=== PATIENT | female | born 1955 | race Caucasian/White ===

== ENCOUNTER 2016-04-29 16:13 | Outpatient (CLI) | payer OTHER | END 2016-04-29 16:14 | LOC: LABRHC 16:13 | PROVIDERS: ATTEND Family Medicine | DX: Z12.4 Encounter for screening for malignant neoplasm of cervix (principal); Z01.419 Encounter for gynecological examination (general) (routine) without abnormal findings | CPT/HCPCS: 88148; G0143 ==

== ENCOUNTER 2017-05-22 10:47 | Outpatient (CLI) | payer OTHER ==
[2017-05-22 12:23] LABS: eGFR (African) > 60; eGFR (Non-African) > 60
== END 2017-05-22 10:50 ==
LOC: LAB 10:47
PROVIDERS: ATTEND Family Medicine
DX: Z00.00 Encounter for general adult medical examination without abnormal findings (principal)
CPT/HCPCS: 36415; 80053; 80061

== ENCOUNTER 2018-05-04 09:17 | Outpatient (CLI) | payer OTHER ==
[2018-05-04 09:47] LABS: eGFR (Non-African) > 60
== END 2018-05-04 09:19 ==
LOC: LAB 09:17
PROVIDERS: ATTEND Family Medicine
DX: Z00.00 Encounter for general adult medical examination without abnormal findings (principal)
CPT/HCPCS: 36415; 80053; 80061

== ENCOUNTER 2018-06-09 14:30 | Outpatient (CLI) | payer OTHER | END 2018-06-09 14:33 | LOC: LABRHC 14:30 | PROVIDERS: ATTEND Family Medicine | DX: Z12.4 Encounter for screening for malignant neoplasm of cervix (principal) | CPT/HCPCS: 88148; G0143 ==

== ENCOUNTER 2019-01-19 07:59 | Emergency (ER) | payer OTHER ==
--- NOTE | 2019-01-19 08:12 | ED Physician Documentation ---
General Adult - HISTORIAN Historian: patient - HPI Stated Complaint: left laceration Chief Complaint: Laceration/Recheck/Suture Onset: hours (1) Timing: still present Further Comments: yes (She was walking along and she did not see the man hole and she tripped and fell in the hole and it did not cut her pants. She has no pain with bone movement. No movement to palpation hip or leg .) - ROS CONST: no problems EYES/ENT: none CVS/RESP: none GI/: none MS/SKIN/LYMPH: other (laceration ) - PAST HX Past History: none Immunizations: tetanus Allergies/Adverse Reactions: Allergies Allergy/AdvReac Type Severity Reaction Status Date / Time Penicillins AdvReac Unknown Anaphylaxis Verified 01/19/19 10:08 Sulfa (Sulfonamide AdvReac Unknown Rash Verified 01/19/19 10:08 Antibiotics) - SOCIAL HX Smoking History: non-smoker Alcohol Use: none Drug Use: none - FAMILY HX Family History: No - VITAL SIGNS Vital Signs: Vital Signs Temp Pulse Resp BP Pulse Ox 114 H 17 161/77 98 01/19/19 10:11 01/19/19 10:11 01/19/19 10:11 01/19/19 10:11 - REVIEWED ASSESSMENTS Nursing Assessment Reviewed: Yes Vitals Reviewed: Yes Procedures Wound Location: lower extremity (left upper leg ) Wound's Depth, Shape: linear Wound Explored: clean Anesthesia: 2% Lidocaine Wound Repaired With: sutures Suture Size/Type: 4:0 (17) ED Results Lab/Radiology - Orders Orders: ED Orders Category Date Time Status LT FEMUR 2VIEWS [RAD] Stat Exams 01/19/19 Completed LT HIP 2VIEW COMPLETE [RAD] Stat Exams 01/19/19 Completed Diph,Pertuss(Acell),Tet Vac/Pf [Adacel] Med 01/19/19 08:12 Discontinued 0.5 ml IM .ONCE ONE Diph,Pertuss(Acell),Tet Vac/Pf [Adacel] Med 01/19/19 09:02 Discontinued 0.5 ml IM .STK-MED ONE Lidocaine 1% 5ml [Xylocaine] Med 01/19/19 08:12 Discontinued 50 mg IJ NOW ONE Lidocaine 2% 20ml Vial [Xylocaine] Med 01/19/19 08:41 Discontinued 60 mg IP NOW ONE Lidocaine HCl/Pf [Lidocaine 2% Vial] Med 01/19/19 08:39 Discontinued 100 mg IJ .STK-MED ONE General Adult Physical Exam - PHYSICAL EXAM GENERAL APPEARANCE: no distress EENT: eye inspection normal, no signs of dehydration NECK: normal inspection RESPIRATORY: no resp distress, chest non-tender CVS: reg rate & rhythm ABDOMEN: soft, normal bowel sounds BACK: normal inspection, no CVA tenderness SKIN: warm/dry, other (left upper leg laceration 20 x 4 open no irregular edges. minimal bleeding. Pulses + cap refill + - also a large same length bruise on leg just ) EXTREMITIES: non-tender, normal range of motion, no evidence of injury, no edema NEURO: oriented X3, CN's nml as tested, motor nml, sensation nml, mood/affect nml Discharge Clincal Impression: Laceration of left leg Qualifiers: Encounter type: initial encounter Qualified Code(s): S81.812A - Laceration without foreign body, left lower leg, initial encounter Referrals: Marry Davis MD [Primary Care Provider] - 2 Days Comments: 1. Keep area clean and dry 2. Keep dressing intact for 24 hours 3. Keflex 500 mg take 1 by mouth twice daily x 10 days 4. Follow up with PCP in 7-10 days for suture removal 17 sutures 5. Return to ER for any increased concerns Condition: Stable Disposition: 01 HOME, SELF-CARE Decision to Admit: NO Date of Decison to Admit: 01/19/19 Decision Time: 10:01
[2019-01-19 08:21] VITALS: BP 161/77
[2019-01-19] MEDS: LIDOCAINE HCL 2% PF 100MG/5ML VIAL IJ ONE (08:45)
[2019-01-19] MEDS: LIDOCAINE HCL 2% MDV 400MG/20ML VIAL IP ONE (08:45)
[2019-01-19] MEDS ORDERED: DIPH,PERTUSS(ACELL),TET VAC/PF 0.5 ML DISP.SYRIN IM ONE (09:02)
--- NOTE | 2019-01-19 09:29 | Diagnostic Imaging Report ---
PATIENT MR#: [id number] PATIENT PATIENT NAME: JOVAN ESPINOZA DATE OF : 1955 REFERRING PHYSICIAN: Verónica Arellano EXAM DATE: 01/19/2019 ACCESSION NUMBER: [id number] EXAM DESCRIPTION: LT HIP 2VIEW COMPLETE Exam: Starship 3 views Indication: INNER THIGH LACERATION AFTER FALL (Hx) / -- Note time : 01/19/2019 9:20:16 AM User : Kailey Costa INNER THIGH LACERATION AFTER FALL (DICOM Hx) (DICOM Hx) Findings: No acute fracture, subluxation, dislocation or other acute osseous abnormality is identified. Mild de generative changes are present. If clinical symptoms persist follow up examination may be warranted to exclude an occult process. Impression: No acute osseous abnormality. mild degenerative changes Read by: Dr. Demetrius Resendiz Transcribed by: Transcribed Date: Electronically signed by: Dr. Demetrius Resendiz Date signed: 01/19/2019 9:27:43 AM
--- NOTE | 2019-01-19 09:29 | Diagnostic Imaging Report ---
PATIENT MR#: [id number] PATIENT PATIENT NAME: JOVAN ESPINOZA DATE OF : 1955 REFERRING PHYSICIAN: Verónica Arellano EXAM DATE: 01/19/2019 ACCESSION NUMBER: [id number] EXAM DESCRIPTION: LT FEMUR 2VIEW Exam: Left femur 2 views Indication: INNER THIGH LACERATION AFTER FALL (Hx) / -- Note time : 01/19/2019 9:20:27 AM User : Kailey Costa INNER THIGH LACERATION AFTER FALL (DICOM Hx) (DICOM Hx) Findings: No acute fracture, subluxation, dislocation or other osseous abnormality is identified. Mild degenera tive changes are present. If clinical symptoms persist follow up examination may be warranted to exclude an occult process. Impression: No acute osseous abnormality. Mild degenerative changes Read by: Dr. Demetrius Resendiz Transcribed by: Transcribed Date: Electronically signed by: Dr. Demetrius Resendiz Date signed: 01/19/2019 9:28:43 AM
[2019-01-19] MEDS: DIPH,PERTUSS(ACELL),TET VAC/PF 0.5 ML DISP.SYRIN IM ONE (10:00)
[2019-01-19] MEDS: Lidocaine 1% 5ml 10 MG/ML VIAL IJ ONE (10:08)
== END 2019-01-19 10:11 | disposition home or self-care (01) ==
LOC: ED 07:59
DX: S81.812A Laceration without foreign body, left lower leg, initial encounter (principal); W01.0XXA Fall on same level from slipping, tripping and stumbling without subsequent striking against object, initial encounter; Y93.01 Activity, walking, marching and hiking
CPT/HCPCS: 73552; 90471; 90472; 90715; 99282; 99284; J2001